=== PATIENT | male | born 1940 | race Caucasian/White ===

== ENCOUNTER 2016-08-23 11:17 | Emergency (ER) | payer OTHER ==
[2016-08-23 11:27] VITALS: BP 133/69; PULSE 85; RESP 16; TEMP 98.2; O2SAT 95
--- NOTE | 2016-08-23 11:49 | EDPHY ---
H & P Time Seen by Provider: 08/23/16 11:39 HPI/ROS: This patient complains of the red spot on the dorsum of his left arm. He is worried about skin cancer. He noticed the bump 2 days ago and admits that it appears somewhat like an insect bite or puncture wound from his cat's claw but he is apprehensive about the skin lesion and came in to make sure that it was not a skin cancer. He reports no significant discomfort with that he admits that is improving terms of the size of the lesion. He notes no other associated symptoms. ROS: Constitutional: No fevers. Integumentary: No other skin lesions or rashes. No discharge from the lesion. GI: No nausea or vomiting Neuro: No numbness or tingling 5 point ROS is otherwise negative. Past Medical/Surgical History: "Pre cancerous" skin lesions Hypertension Dyslipidemia Smoking Status: Never smoked Physical Exam: Physical Exam Vital signs are normal. General: No acute distress Eyes: Pupils equal and react to light. Extraocular motions are intact. Lungs: No respiratory distress. Cardiac: Brisk capillary refill is intact throughout. Skin: There is a 1 mm superficial puncture wound to the dorsum of the left forearm with 1 cm surrounding mild erythema and a small ring of ecchymosis - total size of the lesion is 1 cm. This is not particularly raised. There is no fluctuance. No warmth to touch. No foreign bodies and direct examination. No petechia or purpura Neuro: Alert and oriented x3 with no sensorimotor deficits. Initial differential diagnosis: Insect bite versus cat claw puncture wound. Constitutional: Initial Vital Signs Temperature (C) 36.8 C 08/23/16 11:24 Heart Rate 85 08/23/16 11:24 Respiratory Rate 16 08/23/16 11:24 Blood Pressure 133/69 H 08/23/16 11:24 O2 Sat (%) 95 08/23/16 11:24 O2 Delivery Mode Room Air Allergies/Adverse Reactions: CAT/DOG DANDER Allergy (Unknown, Uncoded 08/23/16 11:23) TOBACCO Allergy (Unknown, Uncoded 08/23/16 11:23) Home Medications: Medication Instructions Recorded Albuterol Hfa Anes Only [Proair 2 puffs IH Q4 PRN #1 mdi 02/20/13 Hfa Icu (*)] Amlodipine Besylate 02/20/13 Aspirin 02/20/13 Losartan Potassium 02/20/13 Lovastatin 07/29/13 MDM/Departure - [facility] ED Course/Re-evaluation: This patient has what appears to be an insect bite without evidence of associated cellulitis. This does not appear consistent with melanoma or other cancer skin lesion. I counseled regarding this reassured him. I advised local wound care. - Depart Disposition: Home, Routine, Self-Care Clinical Impression: Insect bite Qualifiers: Encounter type: initial encounter Qualified Code(s): W57.XXXA - Bitten or stung by nonvenomous insect and other nonvenomous arthropods, initial encounter Condition: Good Instructions: Insect Bite or Sting (ED) Additional Instructions: Diagnosis: Insect bite You have a very small superficial puncture wound to the left arm. This is most likely from an insect. Your CT clot may have also caused this but currently there is no evidence of associated infection or other concerning findings. Plan: Clean the wound daily with warm soapy water. If it becomes more red, apply warm packs. The lesion should resolve over the next 3-10 days. Follow up with her porcelain waxer or primary care physician for any ongoing symptoms Return for any significant worsening despite the treatment plan Referrals: Yomi Ji MD [Primary Care Provider] - As per Instructions
== END 2016-08-23 11:59 | disposition home or self-care (01) ==
LOC: CED 11:17
DX: S40.862A Insect bite (nonvenomous) of left upper arm, initial encounter (principal); I10 Essential (primary) hypertension; Z79.82 Long term (current) use of aspirin; W57.XXXA Bitten or stung by nonvenomous insect and other nonvenomous arthropods, initial encounter

== ENCOUNTER → 2016-10-05 | Outpatient (CLI) | payer OTHER | LOC: BMCIMAGING 13:26 | PROVIDERS: ATTEND Internal Medicine | DX: E21.3 Hyperparathyroidism, unspecified (principal) ==

== ENCOUNTER → 2017-03-02 | Outpatient (CLI) | payer OTHER ==
[~2017-03-02] MED LIST: GADOBUTROL 10 ML VIAL IVP ONE
== END ==
LOC: FIMAGING 12:20
PROVIDERS: ATTEND Internal Medicine
DX: I65.21 Occlusion and stenosis of right carotid artery (principal); R41.82 Altered mental status, unspecified
CPT/HCPCS: A9585

== ENCOUNTER → 2017-08-30 | Outpatient (CLI) | payer OTHER | LOC: BMCIMAGING 14:06 | PROVIDERS: ATTEND Podiatrist Foot & Ankle Surgery | DX: M79.671 Pain in right foot (principal) ==

== ENCOUNTER → 2018-07-03 | Outpatient (CLI) | payer OTHER | LOC: CIMAGING 10:10 | PROVIDERS: ATTEND Internal Medicine | DX: I65.23 Occlusion and stenosis of bilateral carotid arteries (principal) | CPT/HCPCS: 93880-PO ==

== ENCOUNTER 2018-07-20 14:09 | Observation (INO) | payer OTHER ==
[2018-07-20] MEDS ORDERED: NS 1,000 ML IV ONE (14:27)
--- NOTE | 2018-07-20 14:34 | EDPHY ---
H & P Stated Complaint: AMS WITH BRIEF PERIOD OF DISORIENTATION X2 STARTED YEST 9P, L FACIAL NUMB Time Seen by Provider: 07/20/18 14:25 HPI/ROS: CHIEF COMPLAINT: Brief episode of altered mental status, facial numbness HISTORY OF PRESENT ILLNESS: 78-year-old male presents emergency department reporting that at 9:30 p.m. Last night, and again this morning, patient had a brief, 30 sec or so in duration, episode of confusion. 1st occurred while he was at a traffic intersection when he some the felt like the cars were flowing the wrong way through the traffic intersection and till he was able to reorient himself. 2nd episode occurred when he was going through a drive-through for fast food. After ordering the food and receiving it, patient reports he simply "sat there" for a bit of time until the employee told him to drive on. Approximately half an hour prior to presentation to the emergency department the patient noted left-sided facial numbness which is resolving. He denies a significant headache. He denies any word-finding difficulty, slurred speech, visual complaints, numbness or tingling in his arms or legs, or gait difficulty. Patient reports feeling otherwise well. No fevers or chills, chest pain, vomiting, diarrhea, urinary complaints. He denies alcohol use, smoking, or illicit drug use. Denies a history of seizures. Reports that last year he was diagnosed with a TIA based on visual complaints from his left eye. He takes clopidogrel daily. He reports a recent ultrasound examination of his neck vessels which were largely unremarkable, small amount of plaque but no occlusive lesions. REVIEW OF SYSTEMS: A comprehensive 10 system review of systems was reviewed and is otherwise negative aside from elements mentioned in the history of present illness and medical decision making. PAST MEDICAL HISTORY: TIA, hypertension, hypercholesterolemia, SOCIAL HISTORY: Works as a security developer, denies smoking, alcohol, illicit drug use. VITAL SIGNS Reviewed by me. GENERAL: Well-developed, well-nourished, alert, appropriate. HEENT: Atraumatic. Eyes: PERRL, EOMI, no nystagmus. EOMI. No icterus. No injection. Mouth: moist mucous membranes. No erythema or lesions. Neck: No meningitis. Nontender to palpation. No adenopathy. Negative Kernig's. Negative Brudzinski's. No meningismus. LUNGS: Clear to auscultation bilaterally, no wheezes, rhonchi or rales. CARDIAC: Regular rate and rhythm, no rubs, murmurs or gallops. ABDOMEN: Soft, nontender, nondistended, bowel sounds normal. BACK: No CVA tenderness. EXTREMITIES: No trauma. No edema. Range of motion is normal throughout. NEURO: Alert and oriented, cranial nerves II through XII are intact. Motor strength 5 over 5 in all major muscle groups. Sensation intact to light touch. Normal gait. Speech is fluent. He does have 1 or 2 words which sounded a bit "thick" but not really slurred. SKIN: Warm and dry, no rash. PSYCHIATRIC: Normal mentation, no agitation. - Medical/Surgical History Hx Asthma: Yes Hx Chronic Respiratory Disease: No Hx Diabetes: No Hx Cardiac Disease: No Hx Renal Disease: No Hx Cirrhosis: No Hx Alcoholism: No Hx HIV/AIDS: No Hx Splenectomy or Spleen Trauma: No Other PMH: HTN, cholesterol,asthma, TIA. knee surg, shoulder surg, tonsils - Social History Smoking Status: Never smoked Constitutional: Initial Vital Signs Temperature (C) 36.3 C 07/20/18 14:14 Heart Rate 85 07/20/18 14:14 Respiratory Rate 18 07/20/18 14:14 Blood Pressure 160/70 H 07/20/18 14:14 O2 Sat (%) 98 07/20/18 14:14 O2 Delivery Mode Room Air Allergies/Adverse Reactions: CAT/DOG DANDER Allergy (Unknown, Uncoded 07/20/18 14:23) TOBACCO Allergy (Unknown, Uncoded 07/20/18 14:23) Home Medications: Medication Instructions Recorded Albuterol Hfa Anes Only [Proair 2 puffs IH Q4 PRN #1 mdi 02/20/13 Hfa Icu (*)] Amlodipine Besylate 02/20/13 Lovastatin 07/29/13 Plavix 07/20/18 Rosuvastatin Calcium 07/20/18 Spironolactone 07/20/18 Medical Decision Making - Diagnostics EKG Interpretation: 12-LEAD EKG: Please see the full report in [facility]. My interpretation: Sinus rhythm, prolonged GA Imaging Results: Imaging Impressions Chest X-Ray 07/20/18 14:26 Impression: Mild bronchial thickening centrally, as can be seen with chronic bronchitis. Head CT 07/20/18 14:26 Impression: 1. No acute intracranial process. 2. 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 Findings and recommendations discussed with Wanda Willams MD at 1448 hour, . Imaging: Discussed imaging studies w/ call center team leader Radiologist ED Course/Re-evaluation: 78-year-old gentleman presents with numbness to the left side of his face which started at 1:30 pm., and he also reports 2 episodes of brief disorientation. Stroke alert was called. Patient had a EKG demonstrating sinus rhythm a prolonged GA. I-STAT was normal. Troponin was negative. CT scan of the head demonstrates no acute hemorrhage. Patient does have some old microvascular disease especially in the right periventricular region which was also there on his MRI in February 2017. Patient's course discussed with Dr. Vitale from [facility]. He is not a candidate for tPA as his symptoms are clearing on their own. Recommendation for admission to the hospital for further TIA evaluation. Also consider the possibility of cardiac causes for his disorientation or other neurologic disease processes such as seizures. Course discussed with Dr. Albert Amaya Patient was transferred to [facility] where he will be admitted. Differential Diagnosis: Differential diagnoses the patient's presenting complaints was considered including but not limited to intracranial injury, TIA, ischemic cerebrovascular accident, hemorrhagic cerebrovascular accident, hypoglycemia, complex migraine , metastases, tumor, seizure, or electrolyte abnormality Consult/Admit Bed Type: Dr. Amaya, med surg with monitoring - Data Points Laboratory Results: 07/20/18 07/20/18 14:45 14:29 POC Hgb 13.9 gm/dL gm/dL (13.7-17.5) POC Hct 41 % % (40-51) POC Sodium 142 mEq/L mEq/L (135-145) POC Potassium 3.9 mEq/L mEq/L (3.3-5.0) POC Chloride 108 mEq/L mEq/L (97-110) POC Total CO2 22 mEq/L mEq/L (22-31) POC BUN 25 mg/dL H mg/dL (7-23) POC Creatinine 1.1 mg/dL mg/dL (0.7-1.3) POC Glucose 107 mg/dL H mg/dL (70-100) POC Troponin I 0.00 ng/mL ng/mL (0.00-0.08) Medications Given: Sodium Chloride (Ns) 1,000 mls @ 500 mls/hr IV EDNOW ONE PRN Reason: Protocol Stop: 07/20/18 16:26 Last Admin: 07/20/18 14:47 Dose: 1,000 mls Point of Care Test Results: CBC CBC Collection Date 07/20/18 WBC 6.68 RBC 4.91 HGB 14.9 HCT 43.3 PLT 168 Neut # 4.46 Neut 66.8 LYMPH # 1.5 LYMPH 22.5 MCV 88.2 Chemistry 07/20/18 07/20/18 14:45 14:29 POC Sodium 142 mEq/L mEq/L (135-145) POC Potassium 3.9 mEq/L mEq/L (3.3-5.0) POC Chloride 108 mEq/L mEq/L (97-110) POC Total CO2 22 mEq/L mEq/L (22-31) POC BUN 25 mg/dL H mg/dL (7-23) POC Creatinine 1.1 mg/dL mg/dL (0.7-1.3) POC Glucose 107 mg/dL H mg/dL (70-100) POC Troponin I 0.00 ng/mL ng/mL (0.00-0.08) ISTAT H&H 07/20/18 14:29 POC Hgb 13.9 gm/dL gm/dL (13.7-17.5) POC Hct 41 % % (40-51) Departure - Departure Disposition: [facility] Inpatient Acute Clinical Impression: Left facial numbness, Period of disorientation Transient cerebral ischemia Qualifiers: Transient cerebral ischemia type: unspecified Qualified Code(s): G45.9 - Transient cerebral ischemic attack, unspecified Condition: Fair
--- NOTE | 2018-07-20 18:43 | PDGENHP ---
<Xiao Fernandez - Last Filed: 07/20/18 19:04> History and Physical - Chief Complaint Disorientation, left-sided facial numbness - History of Present Illness 78-year-old male with history of TIA occurring in 2018 (is on Plavix), hypertension, hyperlipidemia and asthma presents from urgent care with 2 episodes of disorientation and left-sided facial numbness. Last night as he was traveling to work he was momentarily confused and thought the cars were going in the wrong direction until he is able to reorient himself. The 2nd episode occurred today while he is going through a fast-food drive-through and was given his food and he "sat there". He took a nap today which is not abnormal for him and when he woke up he noticed his left side of his face was numb although he is still able to feel his face. He denies facial drooping, extremity weakness, headache, vomiting, nausea, chest pain or palpitations. He is being admitted for further workup, treatment, and monitoring. History Information - Allergies/Home Medication List Allergies/Adverse Reactions: CAT/DOG DANDER Allergy (Unknown, Uncoded 07/20/18 14:23) TOBACCO Allergy (Unknown, Uncoded 07/20/18 14:23) Home Medications: amLODIPine BESYLATE [Norvasc 5 mg (*)] 5 mg PO DAILY 02/20/13 [Last Taken ] Albuterol Sulfate [Ventolin Hfa] 1 - 2 puffs IH Q4-6PRN PRN 07/20/18 [Last Taken Unknown] Clopidogrel Bisulfate [Clopidogrel] 75 mg PO DAILY 07/20/18 [Last Taken 07/20/18 ] Herbals/Supplements -Info Only 1 ea PO DAILY 07/20/18 [Last Taken 07/20/18] Losartan Potassium 100 mg PO DAILY 07/20/18 [Last Taken 07/20/18] Rosuvastatin Calcium [Crestor 20mg (*)] 20 mg PO DAILY@199907/20/18 [Last Taken 07/19/18] Sildenafil Citrate [Revatio 20 MG (*)] 20 mg PO HS PRN 07/20/18 [Last Taken Unknown] Spironolactone [Aldactone 25 MG (*)] 25 mg PO DAILY 07/20/18 [Last Taken ] Tamsulosin HCl [Flomax 0.4 MG (*)] 0.4 mg PO DAILY@199907/20/18 [Last Taken ] I have personally reviewed and updated: family history, medical history, social history, surgical history - Past Medical History asthma, hypertension, hyperlipidemia, TIA - Surgical History Additional surgical history: Tonsillectomy, knee and shoulder surgery - Family History Positive for: vascular disease (Father mid 70s due to heart failure) , stroke (Mother had multiple TIAs and of a stroke in her late 80s) - Social History Smoking Status: Never smoked Alcohol Use: None Drug Use: None Additional social history: Lives in [place]. 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 Case discussed with admitting physician Dr. Albert Block. White blood count: 6.68 Hemoglobin hematocrit 14.9 and 43.3 Platelet count 168 Sodium: 142 Potassium: 3.9 Chloride: 108 Carbon dioxide: 22 BUN and creatinine: 25/1.1 troponin: 0.00 Today's imaging: Chest x-ray: Mild bronchial thickening which could represent chronic bronchitis EKG: Sinus rhythm with prolonged [place] Head CT without IV contrast: No acute process, stable macrovascular ischemic disease Imaging on 07/03/2018: Bilateral carotid ultrasound: Bilateral arthrosclerotic plaque, right greater than left with no evidence of hemodynamically significant ICA stenosis. Patent antegrade vertebral arteries. Imaging performed on 03/02/2017: Brain MRI with and without IV contrast: Moderate periventricular and deep hemispheric white matter change which is nonspecific and can be seen with small- vessel ischemic disease, no evidence for acute infarct. Head and neck MRA: Mild, not flow significant stenosis is seen at the proximal right internal carotid artery. Otherwise no significant stenosis or dissection in either carotid artery or vertebral artery. Negative MRA of the [place] of [place]. Temp Pulse Resp BP Pulse Ox 36.4 C 74 18 147/63 H 95 07/20/18 16:44 07/20/18 16:44 07/20/18 15:34 07/20/18 16:44 07/20/18 16:44 Constitutional: no apparent distress, appears nourished, not in pain Eyes: PERRL, anicteric sclera, EOMI Ears, Nose, Mouth, Throat: moist mucous membranes, hearing normal, ears appear normal, no oral mucosal ulcers Cardiovascular: regular rate and rhythym, no murmur, rub, or gallop, No edema Peripheral Pulses: 2+: dorsalis-pedis (R), dorsalis-pedis (L) Respiratory: no respiratory distress, no rales or rhonchi, clear to auscultation Gastrointestinal: normoactive bowel sounds, soft, non-tender abdomen, no palpable masses Genitourinary: no bladder fullness, no bladder tenderness Skin: warm, normal color, no rashes or abrasions, no fluctuance, no induration, No mottled Musculoskeletal: full muscle strength, no muscle tenderness, normal joint ROM, no joint effusions Neurologic: AAOx3, sensation intact bilaterally, CN II-XII Intact Psychiatric: interacting appropriately, not anxious, not encephalopathic, thought process linear Lymph, Heme, Immunologic: no cervical LAD, no supraclavicular LAD Lab Data & Imaging Review POC Hgb 13.9 gm/dL (13.7-17.5) 07/20/18 14:29 POC Hct 41 % (40-51) 07/20/18 14:29 POC Sodium 142 mEq/L (135-145) 07/20/18 14:29 POC Potassium 3.9 mEq/L (3.3-5.0) 07/20/18 14:29 POC Chloride 108 mEq/L (97-110) 07/20/18 14:29 POC Total CO2 22 mEq/L (22-31) 07/20/18 14:29 POC BUN 25 mg/dL (7-23) H 07/20/18 14:29 POC Creatinine 1.1 mg/dL (0.7-1.3) 07/20/18 14:29 POC Glucose 107 mg/dL (70-100) H 07/20/18 14:29 POC Troponin I 0.00 ng/mL (0.00-0.08) 07/20/18 14:45 Assessment & Plan Assessment: 78-year-old male with history of TIA onset February 2017, started on Plavix and has been taking since then, hypertension, hyperlipidemia and asthma presenting from Urgent Care with 2 episodes of brief periods of disorientation approximately 30 sec each and left-sided facial numbness which has resolved within 30-45 minutes of onset. Patient is asymptomatic at this time. His vital signs are the following: Blood pressure 126/65, pulse 70, respiration 18 , temperature 36.4 degrees, 96% on room air. #Left facial numbness (Acute) - resolved #Transient cerebral ischemia (Acute) -Recent carotid doppler revealing bilateral arthrosclerotic plaque, R > L with no evidence of hemodynamically significant ICA stenosis. Patent antegrade vertebral arteries. -TIA protocol initiated -Neurology consulted, spoke Dr. Sena and team will evaluate in AM -Brain MRI w/o contrast -Lipid panel/A1c in AM; last A1c 03/2018 was 5.5% -Cont tele monitoring -PT/OT/MEDICAL VAN DRIVER to evaluate and treat -Cycle troponin x 1 -Cont Plavix #HTN:Stable, Cont norvasc, losartan, spironolactone #HLD: cont rosuvastatin Diet: Regular Code: Full VTE ppx: SCDs Dispo: Admit to obs <Gu[place]ako Block - Last Filed: 07/21/18 11:05> History and Physical - History of Present Illness Review of Systems Review of Systems: Physical Exam Physical Exam: Temp Pulse Resp BP Pulse Ox 36.6 C 86 21 H 115/91 H 96 07/21/18 07:12 07/21/18 07:12 07/21/18 07:12 07/21/18 08:07 07/21/18 07:12 Lab Data & Imaging Review POC Hgb 13.9 gm/dL (13.7-17.5) 07/20/18 14:29 POC Hct 41 % (40-51) 07/20/18 14:29 POC Sodium 142 mEq/L (135-145) 07/20/18 14:29 POC Potassium 3.9 mEq/L (3.3-5.0) 07/20/18 14:29 POC Chloride 108 mEq/L (97-110) 07/20/18 14:29 POC Total CO2 22 mEq/L (22-31) 07/20/18 14:29 POC BUN 25 mg/dL (7-23) H 07/20/18 14:29 POC Creatinine 1.1 mg/dL (0.7-1.3) 07/20/18 14:29 POC Glucose 107 mg/dL (70-100) H 07/20/18 14:29 Hemoglobin A1c 5.7 % (4.0-6.0) 07/21/18 04:28 Estim Average Glucose 117 mg/dL (68-126) 07/21/18 04:28 POC Troponin I 0.00 ng/mL (0.00-0.08) 07/20/18 14:45 Troponin I < 0.012 ng/mL (0.000-0.034) 07/20/18 21:10 Triglycerides 126 mg/dL (40-150) 07/21/18 04:28 Cholesterol 119 mg/dL (140-220) L 07/21/18 04:28 Cholesterol Risk Factr 0.4 (0.2-1.0) 07/21/18 04:28 LDL Cholesterol, Calc 49 mg/dL (80-100) L 07/21/18 04:28 LDL Risk Factor 0.6 (0.2-1.0) 07/21/18 04:28 VLDL Cholesterol 25 mg/dL (8-25) 07/21/18 04:28 Non-HDL Cholesterol 74 mg/dL (90-129) L 07/21/18 04:28 HDL Cholesterol 45 mg/dL (40-65) 07/21/18 04:28 LDL/HDL Ratio 1.08 RATIO (1.00-3.64) 07/21/18 04:28 Cholesterol/HDL Ratio 2.64 RATIO (1.00-4.97) 07/21/18 04:28 Assessment & Plan Assessment: Left facial numbness (Acute) Transient cerebral ischemia (Acute) Plan: Case discussed with Wanda Fernandez. Agree with plan outlined above. Please see my separate note for additional details.
[2018-07-20] MEDS ORDERED: ALBUTEROL 60 PUFFS/8 GM MDI IH PRN (18:59)
--- NOTE | 2018-07-20 19:17 | HOSPPROG ---
Hospitalist Progress Note Assessment/Plan: Reviewed case, personally examined patient, and discussed with Wanda Fernandez GUNNERY/ORDNANCE OFFICER. Agree with her findings with the following exceptions: 78yo M with h/o TIA in early 2018 (left vision changes, now on plavix), HTN, HLD here with two brief episodes of disorientation followed by 30-40 minutes of left facial paresthesias that have now resolved. Stroke alert called. No TPA given that symptoms had resolved. Non-con CT head negative. Neuro exam unremarkable. He had a carotid doppler US performed 07/03/2018 which showed no hemodynamically significant stenosis in his carotids and patent vertebral arteries. #Left facial paresthesias, brief disorientation: Now resolved. Possible his disorientation is c/w focal seizure. - Brain MRI w/o, TTE w/bubble ordered - Defer additional vascular assessment with recent imaging and favorable neurologic exam - PT/OT/HALL CLEANER - Neurology consult Dispo: admit under observation Objective: Vital Signs Temp Pulse Resp BP Pulse Ox 36.4 C 74 18 147/63 H 95 07/20/18 16:44 07/20/18 16:44 07/20/18 15:34 07/20/18 16:44 07/20/18 16:44 07/19/18 07/20/18 07/21/18 05:59 05:59 05:59 Intake Total 750 Output Total 201 Balance 549 ICD10 Worksheet Patient Problems: Problems Problem Status Onset Left facial numbness Acute Transient cerebral ischemia Acute
[2018-07-20] MEDS ORDERED: ROSUVASTATIN CALCIUM 20 MG TAB PO SCH (20:00)
[2018-07-20] MEDS ORDERED: TAMSULOSIN HCL 0.4 MG CAP PO SCH (20:00)
[2018-07-21 08:09] VITALS: BP 115/91
[2018-07-21] MEDS ORDERED: CLOPIDOGREL BISULFATE 75 MG TAB PO SCH (09:00)
[2018-07-21] MEDS ORDERED: SPIRONOLACTONE 25 MG TAB PO SCH (09:00)
[2018-07-21] MEDS ORDERED: LOSARTAN POTASSIUM 50 MG TAB PO SCH (09:00)
[2018-07-21] MEDS ORDERED: amLODIPine BESYLATE 5 MG TAB PO SCH (09:00)
--- NOTE | 2018-07-21 09:21 | NEUROPROG ---
Assessment: [id number] - Neurology Consult: - CC: Disorientation, left facial numbness - HPI: 07/20/18: Pt with history of TIA in 2018 (symptoms of 30 minutes of left eye visual disturbance, MRI negative for stroke, placed on plavix after that), HTN, HLD presented with 2 episodes of disorientation and left facial numbness. On pt noted he became disoriented and thought cars were driving in the wrong direction. The 2nd episode occurred on 07/20/18 when he went through a drive-in and was unresponsive when they gave him his food. Pt took a nap on 07/20/18 and when he awoke he noted left facial paresthesias that lasted 30-45 minutes. He had no other neurologic issues. Pt did note a few episodes in the last year of visual aura (delgado light surrounding his vision, shimmering lights at times). Pt came to [facility] ER where symptoms resolved. Head CT and brain MRI showed no acute changes. Brain MRA in 2018 showed a right internal carotid stenosis that was not flow significant. He had had a carotid U/S on 07/03/18 w/o any significant stenosis. His neurologic exam on 07/22/18 was normal. 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 DDx also includes early dementia with an acute confusional state (sundowning) or some relative dehydration in the setting of a known right ICA stenosis. TIA seems unlikely given he had three separate events and his left facial paresthesias lasted > 30 minutes but no ischemia was noted on brain MRI. Pt reported no driving issues and feels safe driving. Pt can f/u with me next week to see if his symptoms require any migrine prophylaxis and complete a return to work form. Pt happy with this plan. - PMHx: TIA, HTN, HLD, asthma - Home Meds: norvasc, ventolin, plavix 75 mg qd, losartan, crestor 20 mg qd, aldactone, flomax - SHx: no tobacco FHx: stroke - ROS: Pt denied acute fever, total vision loss, active severe chest pain, respiratory failure, total body severe rash, total bowel/bladder incontinence, psychosis, active seizures, or active bleeding - O: VS reviewed General: Alert Eyes: Fundoscopic exam not able to visualize optic disks CV: Heart RRR, no murmur, no carotid bruit Lungs: Clear to auscultation bilaterally, no rhonchi or rales Neuro: - Mental: . Oriented x person/place/date . concentration appears normal . speech fluency/comprehension normal . memory appears normal . fund of knowledge appear intact - Cranial Nerves: . II: PERRL, VFFTC . III/IV/: EOMI, no nystagmus, normal smooth pursuits, no Ptosis . V: facial sensation intact to LT . VII: face symmetric to eye closure and smile . VIII: hearing intact to conversation . IX/X: uvula raises symmetrically . XI: SCM 5/5 B/L strength . XII: tongue protrudes midline w/nl strength - Motor: . Tone: normal tone in all 4 extremity . Strength: no pronator drift, strength 5/5 throughout (B/L delt, bic, tri, hand maturity checker, hf/he, df/pf) - Reflexes: B/L bic 2/4 - Sensory: all 4 extremity intact to light touch - Coord: [id number] wnl, STEFAN wnl, zczy-[id number]-bumt wnl - Gait: deferred - Labs: 07/22/18- LDL 49 - Rads: 03/02/17- Head/neck MRA: mild, nonflow significant stenosis at R ICA. 07/03/18- Carotid US: Bilateral atherosclerotic calcified plaque, right greater than left, with no sonographic evidence of a hemodynamically significant ICA stenosis. Patent, antegrade vertebral arteries. - 07/20/18- Head CT wo: no acute intracranial findings - 07/20/18- Brain MRI wo: no acute stroke or acute changes (I personally visualized the images on 07/20/18) - Assessment: 1. 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 Prior TIA 2018: this event also sounds suspicious for atypical migraine - Plan: - Continue plavix 75 mg po qd for stroke prevention given possible prior TIA in 2018 - Lipid panel with LDL goal < 70 (49) - H1AC goal < 7.0 - BLood pressure < 140/90 - PT/OT/Speech to determine any rehab needs - F/U in neurology clinic 1 weeks after hospital discharge Objective: Vital Signs Temp Pulse Resp BP Pulse Ox 36.6 C 86 21 H 115/91 H 96 07/21/18 07:12 07/21/18 07:12 07/21/18 07:12 07/21/18 08:07 07/21/18 07:12 07/20/18 07/21/18 07/22/18 05:59 05:59 05:59 Intake Total 1250 Output Total 1401 Balance -151 Allergies/Adverse Reactions: CAT/DOG DANDER Allergy (Unknown, Uncoded 07/20/18 14:23) TOBACCO Allergy (Unknown, Uncoded 07/20/18 14:23)
--- NOTE | 2018-07-21 12:21 | ASMTLACE ---
LACE Length of stay for Answers: 1 day current admission Acuity / Level of Answers: No Care: Did the patient have an inpatient admission? Comorbidities - select Answers: Cerebrovascular disease all that apply (CVA, TIA, aneurysms, vasc ular dementia) Other Notes: HTN; HLD # of Emergency department Answers: 1-2 visits in the last 6 months Score: 4 Date Signed: 07/21/2018 12:20 PM Electronically Signed By:Mel Cho RN
--- NOTE | 2018-07-21 12:24 | ASMTCMCOM ---
CM Note CM Note Notes: Reviewed chart and spoke with RN, pt is cleared for home and is eager to discharge. CM called cab for pt and he walked independently with RN escorting him to main entrance, no other needs. DC Plan: Independent Date Signed: 07/21/2018 12:23 PM Electronically Signed By:Mel Cho RN
--- NOTE | 2018-07-21 21:24 | GDS ---
[f rep st] DISCHARGE SUMMARY DISCHARGE DIAGNOSES: 1. Multiple episodes of disorientation. 2. History of transient ischemic attack. STUDIES AND PROCEDURES: 1. Brain MRI. 2. CT of the head. CONSULTATIONS: Neurology. PHYSICAL EXAM: GENERAL: The patient is alert. VITAL SIGNS: Afebrile at 36.6, pulse is 86, respira tory rate is 21, blood pressure is 115/61. He is saturating 96% on room air. I have seen and evaluated the patient on the day of discharge. HOSPITAL COURSE: The patient is a 78-year-old male who presented to the emergency room after complai nts of 2 separate episodes of left-sided facial numbness with disorientation. He was evaluated catalina perera this hospitalization with an MRI of his brain as well as a neurology consult, and it is felt that t he patient is likely being affected by atypical migraines. He recently had a carotid Doppler perform ed that was within normal limits. The patient is deferring an echocardiogram at this time. Speech T herapy, Occupational Therapy and Physical Therapy have evaluated the patient and feel that he is at h is baseline. I have discussed the patient's disposition with Dr. Irineo Sena, who is in agreement w ith this plan. The patient will be discharged home independently and follow up in the outpatient set ting with Dr. Sena. DISCHARGE MEDICATIONS: Please refer to EMR form. I have not adjusted the patient's previously presc ribed home medications to the best of my knowledge. FOLLOWUP: 1. Dr. Yomi Ji. 2. Dr. Bridger Sena. /[id number]/MODL
== END 2018-07-21 12:09 | disposition home or self-care (01) ==
LOC: CED 14:09 → F3N 16:33
PROVIDERS: ADMIT Internal Medicine; ATTEND Internal Medicine
DX: R41.0 Disorientation, unspecified (principal); Z86.73 Personal history of transient ischemic attack (TIA), and cerebral infarction without residual deficits; I10 Essential (primary) hypertension; E78.5 Hyperlipidemia, unspecified; R91.8 Other nonspecific abnormal finding of lung field; I77.9 Disorder of arteries and arterioles, unspecified
CPT/HCPCS: 70450; 70551; 71046; 97161; G0378; 82435-PO; 82565-PO; 82947-PO; 84132-PO; 84295-PO; 84484-ER; 84520-PO; 85014-ER; 85025-QW-ER; 96360-ER; 96361-ER; 99285-ER